=== PATIENT | male | born 1970 | race Two or more races ===

== ENCOUNTER 2018-11-04 11:08 | Emergency (ER) | payer BC ==
[~2018-11-04] VITALS: Ht 167.6 cm; Wt 81.6 kg
[2018-11-04 11:10] VITALS: BP 172/89
--- NOTE | 2018-11-04 11:23 | NUR ---
Adela galaviz in [facility] - 11/04/18 at 1219 by SANDEEP GEOMAGNETIST AT [facility].
--- NOTE | 2018-11-04 11:23 | NUR ---
PALLIATIVE SENIOR NP AT BEDSIDE FOR XRAY.
[2018-11-04] MEDS ORDERED: IBUPROFEN 600 MG TABLET PO ONE ×2 (11:24→11:30)
--- NOTE | 2018-11-04 12:19 | NUR ---
Patient discharged to home in stable condition. Written and verbal after care instructions given. Patient verbalizes understanding of instruction.
== END 2018-11-04 12:24 | disposition home or self-care (01) ==
LOC: ER 11:10
DX: S40.011A Contusion of right shoulder, initial encounter (principal); S50.01XA Contusion of right elbow, initial encounter; S93.491A Sprain of other ligament of right ankle, initial encounter; I10 Essential (primary) hypertension; V23.4XXA Motorcycle driver injured in collision with car, pick-up truck or van in traffic accident, initial encounter; Y93.55 Activity, bike riding; Y92.413 State road as the place of occurrence of the external cause; Y99.8 Other external cause status
CPT/HCPCS: 73030-TC; 73080-TC; 73610-TC